=== PATIENT | female | born 1970 | race Caucasian/White ===

== ENCOUNTER → 2017-10-06 | Emergency (ER) | payer OTHER ==
[2017-10-06 12:25] VITALS: BP 102/65; PULSE 70; RESP 16; TEMP 98.6; O2SAT 96
== END | disposition left against medical advice (07) ==
DX: Z53.21 Procedure and treatment not carried out due to patient leaving prior to being seen by health care provider (principal)

== ENCOUNTER → 2017-10-06 | Outpatient (CLI) | payer OTHER | LOC: BMCIMAGING 15:27 | PROVIDERS: ATTEND Emergency Medicine | DX: J40 Bronchitis, not specified as acute or chronic (principal) ==